=== PATIENT | female | born 1955 | race Caucasian/White ===

== ENCOUNTER → 2017-05-11 | Outpatient (CLI) | payer OTHER ==
[2015-03-13 08:30] VITALS: BP 135/83
[~2017-05-11] MED LIST: CLON1TAB PO; DESV50TA PO; LEVO25TA55 PO; LEVO75TA PO; LEVO88TA2 PO; LITH150C PO; LORA-434 PO; OXYC10TA45 PO; OXYC5CAP PO; RIVA10TA PO; SOLI5TAB2 PO; TOPOMAX
[2017-05-11 10:15] LABS: BASO % 0 % (0-3); EOS # 0.1 x10^3/uL (0.0-0.7); EOS % 1 % (0-3); HEMATOCRIT 41.3 % (36.0-47.0); HEMOGLOBIN 13.1 g/dL (12.0-15.5); LYMPH # 1.7 x10^3/uL (1.0-4.8); LYMPH % 20 % (24-48); MEAN CORPUSCULAR HEMOGLOBIN 30 pg (25-35); MEAN CORPUSCULAR HGB CONC 32 g/dL (31-37); MEAN CORPUSCULAR VOLUME 93 fL (79-100); MONO # 0.6 x10^3/uL (0.0-1.1); MONO % 7 % (0-9); NEUT # 6.1 x10^3uL (1.8-7.7); NEUT % 71 % (31-73); PLATELET COUNT 303 x10^3/uL (140-400); RED BLOOD COUNT 4.45 x10^6/uL (3.50-5.40); RED CELL DISTRIBUTION WIDTH 14.1 % (11.5-14.5); WHITE BLOOD COUNT 8.5 x10^3/uL (4.0-11.0)
[2017-05-11 11:20] LABS: SEDIMENTATION RATE 29 (0-25)
== END | disposition home or self-care (01) ==
LOC: LAB 09:33
PROVIDERS: ATTEND Anesthesiology Pain Medicine
DX: Z48.89 Encounter for other specified surgical aftercare (principal)
CPT/HCPCS: 36415; 85025; 85651; 86140

== ENCOUNTER → 2017-09-03 | Outpatient (CLI) | payer OTHER ==
[2015-03-13 08:30] VITALS: BP 135/83
== END | disposition home or self-care (01) ==
LOC: SURG 11:57
PROVIDERS: ATTEND Anesthesiology Pain Medicine
DX: M54.5 Low back pain (principal); K21.9 Gastro-esophageal reflux disease without esophagitis; I10 Essential (primary) hypertension; M19.90 Unspecified osteoarthritis, unspecified site; E78.5 Hyperlipidemia, unspecified
CPT/HCPCS: 99214

== ENCOUNTER 2018-04-08 12:30 | Emergency (ER) | payer OTHER ==
[~2018-04-08] VITALS: Ht 149.9 cm; Wt 81.6 kg
[~2018-04-08 12:30] MED LIST changes: +LORA-254 PO; -LORA-434 PO
[2018-04-08 12:47] VITALS: BP 164/68
[2018-04-08] MEDS ORDERED: KETOROLAC 60 MG/2 ML VIAL. IM ONE (13:15)
--- NOTE | 2018-04-08 13:48 | RAD ---
PQRS Compliance Statement: One or more of the following individualized dose reduction techniques were utilized for this examination: 1. Automated exposure control 2. Adjustment of the mA and/or kV according to patient size 3. Use of iterative reconstruction technique CT LUMBAR SPINE WO CONTRAST, CT ABDOMEN PELVIS WO CONTRAST Clinical Indication: LEFT FLANK PAIN AND BACK PAIN SINCE WEDNESDAY, incontinence SINCE WEDNESDAY Comparison: CT lumbar spine without contrast, January 16, 2016. CT abdomen and pelvis without contrast, March 13, 2015. Technique: Helical CT imaging of the abdomen and pelvis is performed without IV or oral contrast. Using source images, small [id number], axial, coronal, sagittal reconstructions of the lumbar spine are performed. Findings: Evaluation of solid organs and bowel is limited without oral and IV contrast, decreasing sensitivity for detection of pathology. Minimal atelectasis or scarring in the lateral left lower lobe. Cardiac size normal. The liver, gallbladder, spleen, pancreas, adrenal glands, abdominal aorta caliber are normal. There is infrarenal IVC filter. There is a small cyst in the lower pole the right kidney. There is no hydronephrosis. There is gastric lap band, position appears appropriate. There is right sided pack of dorsal column stimulator. There is left sided pack of stimulator in the pelvis. There is no dilated small bowel. The appendix is normal. There is no colon wall thickening. There is moderate to large colon stool volume, similar to prior study. The proximal colon is distended. There is no point of transition. The urinary bladder is normal. Uterus surgically absent. No pelvic free fluid. There is mild left convexity lumbar scoliosis. There is left-sided fusion of T11-L1. There is T12 corpectomy with bone graft placement. Hardware appears stable. Compression fractures at the superior endplates of T10 and L4. Mild grade 1 anterolisthesis of L4 and L5 is stable. Beam hardening artifact at the level of the hardware limits evaluation of the central canal. L2/L3: There is a broad-based posterior disc osteophyte complex. No significant central canal stenosis. Mild left and no significant right right neural foraminal narrowing. L3/L4: There is minimal broad-based posterior disc bulge. Prominent posterior epidural fat. Central canal is adequate. Moderate left and mild right neural foraminal narrowing. L4/L5: Anterolisthesis at this level. Central canal is patent. There is facet hypertrophy, worse on the left. Neural foraminal narrowing is probably mild bilaterally. L5/S1: Central canal and neural foramina are patent. IMPRESSION: 1. No acute abdominal or pelvic abnormality. 2. Moderate to large colon stool volume, correlate for constipation. 3. Left-sided fusion at T11-L1, T12 corpectomy and bone graft placement appear stable. 4. Old compression fractures at the superior endplates of T10 and L4. Electronically signed by: Brant Franco MD (04/08/2018 1:45 PM) [id number]
[2018-04-08 14:11] LABS: BACTERIA,URINE 0 /HPF (0-FEW); BILIRUBIN,URINE NEG (NEG); CLARITY,URINE CLEAR; GLUCOSE,URINE NEG (NEG); NITRITE,URINE NEG (NEG); RBC,URINE 0 /HPF (0-2); SQUAMOUS EPITHELIAL CELL,UR OCC /LPF; UROBILINOGEN,URINE 0.2 mg/dL (0.2 mg/dL)
[2018-04-08 14:12] LABS: COLOR,URINE YELLOW
[2018-04-08] MEDS ORDERED: MAGN296S9 PO (14:21)
[2018-04-08] MEDS ORDERED: CYCL-331 PO (14:21)
[2018-04-08] MEDS ORDERED: CIPR250T30 PO (14:21)
--- NOTE | 2018-04-08 14:21 | PHYS DOC ---
Past History Past Medical History: Hypothyroid, Pancreatitis, Other Past Surgical History: Hysterectomy Smoking: Non-smoker Alcohol Use: None Drug Use: None Adult General Chief Complaint Chief Complaint: BACK PAIN OR INJURY HPI HPI 62-year-old female patient with history of chronic back pain and surgery complaining of increasing of left flank and pain with radiation to the upper quadrant for the last 5 days that getting better with Percocet. Patient denies new focal neuro deficit, fever and chills, urinary symptoms, nausea and vomiting. Patient complaining of chronic constipation. Review of Systems Review of Systems Constitutional: Denies fever or chills [] Eyes: Denies change in visual acuity, redness, or eye pain [] HENT: Denies nasal congestion or sore throat [] Respiratory: Denies cough or shortness of breath [] Cardiovascular: No additional information not addressed in HPI [] GI: Denies abdominal pain, nausea, vomiting, bloody stools or diarrhea [] : Denies dysuria or hematuria [] Musculoskeletal: Reports back pain Integument: Denies rash or skin lesions [] Neurologic: Denies headache, focal weakness or sensory changes [] Endocrine: Denies polyuria or polydipsia [] All other systems were reviewed and found to be within normal limits, except as documented in this note. Current Medications Current Medications Current Medications Medications (Trade) Dose Ordered Sig/Naida Start Time Stop Time Status Last Admin Dose Admin Ketorolac Tromethamine (Toradol Im) 60 mg 1X ONCE 04/08/18 13:15 04/08/18 13:17 DC 04/08/18 13:38 60 MG Allergies Allergies Allergies Coded Allergies Type Severity Reaction Last Updated Verified Iodinated Contrast- Oral and IV Dye Allergy Intermediate 03/13/15 No Penicillins Allergy Intermediate 03/13/15 Yes amitriptyline Allergy Unknown 04/08/18 Yes Physical Exam Physical Exam Constitutional: Well developed, well nourished, moderate distress, non-toxic appearance. [] HENT: Normocephalic, atraumatic Eyes: PERRLA, EOMI, conjunctiva normal, no discharge. [] Neck: Normal range of motion, no tenderness, supple, no stridor. [] Cardiovascular:Heart rate regular rhythm, no murmur [] Lungs & Thorax: Bilateral breath sounds clear to auscultation [] Abdomen: Bowel sounds normal, soft, no tenderness, no masses, no pulsatile masses. [] Skin: Warm, dry, no erythema, no rash. [] Back: No midline tenderness, no CVA tenderness, limited range of motion of lumbar spine because of pain Extremities: No tenderness, no cyanosis, no clubbing, ROM intact, no edema. [] Neurologic: Alert and oriented X 3, normal motor function, normal sensory function, no focal deficits noted. [] Psychologic: Affect normal, judgement normal, mood normal. [] Current Patient Data Vital Signs Vital Signs Date Time Temp Pulse Resp B/P (MAP) Pulse Ox O2 Delivery O2 Flow Rate FiO2 04/08/18 12:47 98.6 88 18 97 Room Air Lab Results Laboratory Tests Test 04/08/18 13:47 Urine Collection Type Unknown Urine Color Yellow Urine Clarity Clear Urine pH 7.0 Urine Specific [place] 1.010 Urine Protein Neg (NEG-TRACE) Urine Glucose (UA) Neg mg/dL (NEG) Urine Ketones (Stick) Neg mg/dL (NEG) Urine Blood Trace (NEG) Urine Nitrite Neg (NEG) Urine Bilirubin Neg (NEG) Urine Urobilinogen Dipstick 0.2 mg/dL (0.2 mg/dL) Urine Leukocyte Esterase Trace (NEG) Urine RBC 0 /HPF (0-2) Urine WBC 1-4 /HPF (0-4) Urine Squamous Epithelial Cells Occ /LPF Urine Bacteria 0 /HPF (0-FEW) Urine Mucus Slight /LPF EKG EKG [] Radiology/Procedures Radiology/Procedures [][address] [address] IMAGING REPORT Signed PATIENT: KARINA CALLOWAY ACCOUNT: [id number] : 1955 LOCATION: ER AGE: 62 SEX: F EXAM STATUS: REG ER ORD. PHYSICIAN: CHUN COHEN MD REASON: back pain and flank pain PROCEDURE: CT ABDOMEN PELVIS WO CONTRAST PQRS Compliance Statement: One or more of the following individualized dose reduction techniques were utilized for this examination: 1. Automated exposure control 2. Adjustment of the mA and/or kV according to patient size 3. Use of iterative reconstruction technique CT LUMBAR SPINE WO CONTRAST, CT ABDOMEN PELVIS WO CONTRAST Clinical Indication: LEFT FLANK PAIN AND BACK PAIN SINCE WEDNESDAY, incontinence SINCE WEDNESDAY Comparison: CT lumbar spine without contrast, January 16, 2016. CT abdomen and pelvis without contrast, March 13, 2015. Technique: Helical CT imaging of the abdomen and pelvis is performed without IV or oral contrast. Using source images, small [id number], axial, coronal, sagittal reconstructions of the lumbar spine are performed. Findings: Evaluation of solid organs and bowel is limited without oral and IV contrast, decreasing sensitivity for detection of pathology. Minimal atelectasis or scarring in the lateral left lower lobe. Cardiac size normal. The liver, gallbladder, spleen, pancreas, adrenal glands, abdominal aorta caliber are normal. There is infrarenal IVC filter. There is a small cyst in the lower pole the right kidney. There is no hydronephrosis. There is gastric lap band, position appears appropriate. There is right sided pack of dorsal column stimulator. There is left sided pack of stimulator in the pelvis. There is no dilated small bowel. The appendix is normal. There is no colon wall thickening. There is moderate to large colon stool volume, similar to prior study. The proximal colon is distended. There is no point of transition. The urinary bladder is normal. Uterus surgically absent. No pelvic free fluid. There is mild left convexity lumbar scoliosis. There is left-sided fusion of T11-L1. There is T12 corpectomy with bone graft placement. Hardware appears stable. Compression fractures at the superior endplates of T10 and L4. Mild grade 1 anterolisthesis of L4 and L5 is stable. Beam hardening artifact at the level of the hardware limits evaluation of the central canal. L2/L3: There is a broad-based posterior disc osteophyte complex. No significant central canal stenosis. Mild left and no significant right right neural foraminal narrowing. L3/L4: There is minimal broad-based posterior disc bulge. Prominent posterior epidural fat. Central canal is adequate. Moderate left and mild right neural foraminal narrowing. L4/L5: Anterolisthesis at this level. Central canal is patent. There is facet hypertrophy, worse on the left. Neural foraminal narrowing is probably mild bilaterally. L5/S1: Central canal and neural foramina are patent. IMPRESSION: 1. No acute abdominal or pelvic abnormality. 2. Moderate to large colon stool volume, correlate for constipation. 3. Left-sided fusion at T11-L1, T12 corpectomy and bone graft placement appear stable. 4. Old compression fractures at the superior endplates of T10 and L4. Electronically signed by: Brant Franco MD (04/08/2018 1:45 PM) [id number] DICTATED AND SIGNED BY: BRANT FRANCO MD DATE: 04/08/18 1332 CC: HAYLEY CHAUHAN; CHUN COHEN MD ~ Course & Med Decision Making Course & Med Decision Making Pertinent Labs and Imaging studies reviewed. (See chart for details) []discharge: I've spoken with the patient and/or caregivers. I've explained the patient's condition, diagnosis and treatment plan based on information available to me at this time. I've answered the patient's and/or caregivers questions and addressed any concerns. The patient and/or caregivers have a good understanding the patient's diagnosis, condition and treatment plan as can be expected at this point. Vital signs have been stabilized. The patient's condition is stable for discharge from the emergency department. The patient will pursue further outpatient evaluation with her primary care provider or other designated consulting physician as outlined in the discharge instructions. Patient and/or caregivers are agreeable to this plan of care and follow-up instructions have been explained in detail. The patient and/or caregivers have received these instructions in written format and expressed understanding of these discharge instructions. The patient and her caregivers are aware that if any significant change in condition or worsening of symptoms should prompt him to immediately return to this of the closest emergency department. If an emergent department is not readily available I would encourage him to call 911. [place] Disclaimer Dragon Disclaimer This electronic medical record was generated, in whole or in part, using a voice recognition dictation system. Departure Departure: Impression: Primary Impression: Exacerbation of chronic back pain Additional Impressions: UTI (urinary tract infection) Constipation Disposition: 01 HOME, SELF-CARE (at 1416) Condition: IMPROVED Referrals: HAYLEY CHAUHAN (PCP) Patient Instructions: Constipation, Adult, Lumbosacral Strain, Urinary Tract Infection Additional Instructions: Drink plenty of liquids Follow-up with your primary care physician in 3-5 days Return to ER if not getting better Apply ice on your back Scripts Ciprofloxacin Hcl (CIPRO) 250 Mg Tablet 1 TAB PO BID, #6 TAB Prov: CHUN COHEN MD 04/08/18 Cyclobenzaprine Hcl (CYCLOBENZAPRINE HCL) 10 Mg Tablet 1 TAB PO TID, #30 TAB Prov: CHUN COHEN MD 04/08/18 Magnesium Citrate (MAGNESIUM CITRATE) 296 Ml Solution 296 ML PO ONCE, #296 ML Prov: CHUN COHEN MD 04/08/18 Problem Qualifiers CHUN COHEN MD Apr 08, 2018 14:21
== END 2018-04-08 14:22 ==
LOC: ER 12:30
DX: G89.29 Other chronic pain (principal); N39.0 Urinary tract infection, site not specified; K59.00 Constipation, unspecified; E03.9 Hypothyroidism, unspecified; Z88.0 Allergy status to penicillin; Z91.041 Radiographic dye allergy status; Z88.8 Allergy status to other drugs, medicaments and biological substances
CPT/HCPCS: 72131; 74176; 81001; 87086; 96372; 99285; J1885; 82947

== ENCOUNTER 2018-04-15 17:00 | Emergency (ER) | payer MEDICARE, OTHER ==
[~2018-04-15] VITALS: Ht 149.9 cm; Wt 81.6 kg
[~2018-04-15 17:00] MED LIST changes: +CIPR250T30 PO; +CYCL-331 PO; +MAGN296S9 PO
[2018-04-15] MEDS ORDERED: MORPHINE SULFATE 5 MG/ML SYRINGE. IV ONE (17:30)
--- NOTE | 2018-04-15 17:45 | ED.ADGEN ---
Past History Past Medical History: Hypothyroid, Pancreatitis, Other (EVE DENNY DO) Past Medical History: Hypothyroid, Pancreatitis (BONNIE GARCIA DO) Past Surgical History: Hysterectomy (EVE DENNY DO) Past Surgical History: Hysterectomy (BONNIE GARCIA DO) Smoking: Non-smoker Alcohol Use: None Drug Use: None (EVE DENNY DO) Smoking: Non-smoker Alcohol Use: None Drug Use: None (BONNIE GARICA DO) Adult General HPI HPI Patient is a 62 year old female who presents with left side abdominal pain. Patient has been having pain symptoms over the last 2 weeks. She describes a constant pain that is over the left middle and lower portion of her abdomen. She normally uses Percocet every day for control of back pain and her abdominal pain has also been relieved by this treatment, but does return. She does not have nausea or vomiting. She denies urinary symptoms. She has not had a fever. She was evaluated in this emergency department last week for the same complaint. At that time, her CT scan was suspicious for constipation. She was discharged home with magnesium citrate which she has been using. She now describes having diarrhea stools secondary to her anti-constipation treatment. But her pain has continued. The patient is allergic to iodine contrast dye. She does have anaphylactoid type reaction so this is not an option for imaging. (EVE DENNY DO) Review of Systems Review of Systems Constitutional: Denies fever or chills Eyes: Denies change in visual acuity HENT: Denies nasal congestion or sore throat Respiratory: Denies cough or shortness of breath Cardiovascular: No additional information not addressed in HPI GI: as described above : Denies dysuria Musculoskeletal: Denies back pain or joint pain Integument: Denies rash or skin lesions Neurologic: Denies headache Endocrine: Denies polyuria All other systems were reviewed and found to be within normal limits, except as documented in this note. (EVE DENNY DO) Current Medications Current Medications Current Medications Medications (Trade) Dose Ordered Sig/Naida Start Time Stop Time Status Last Admin Dose Admin Ceftriaxone Sodium 1 gm/ Sodium Chloride 50 ml @ 100 mls/hr 1X ONCE 04/15/18 20:30 04/15/18 20:30 DC Ceftriaxone Sodium (Rocephin) 1 gm 1X ONCE 04/15/18 20:30 04/15/18 20:31 DC 04/15/18 20:30 1 GM Morphine Sulfate (Morphine 10mg Syringe) 10 mg 1X ONCE 04/15/18 18:00 04/15/18 18:01 DC 04/15/18 17:53 10 MG Morphine Sulfate (Morphine 5mg Syringe) 5 mg 1X ONCE 04/15/18 17:30 04/15/18 17:47 DC (BONNIE GARCIA DO) Allergies Allergies Allergies Coded Allergies Type Severity Reaction Last Updated Verified Iodinated Contrast- Oral and IV Dye Allergy Intermediate 03/13/15 No Penicillins Allergy Intermediate 03/13/15 Yes amitriptyline Allergy Unknown 04/08/18 Yes (BONNIE GARCIA DO) Physical Exam Physical Exam Constitutional: Well developed, well nourished, no acute distress, non-toxic appearance HENT: Normocephalic, atraumatic, bilateral external ears normal, oropharynx moist, no oral exudates, nose normal Eyes: PERRLA, EOMI, conjunctiva normal Neck: Normal range of motion, no tenderness Cardiovascular:Heart rate regular rhythm, no murmur Lungs & Thorax: Bilateral breath sounds clear to auscultation Abdomen: Bowel sounds normal, soft, mildly TTP over the left upper and lower quadrants. No guarding or rebound Skin: Warm, dry, no erythema Extremities: no edema Neurologic: Alert and oriented X 3 Psychologic: Affect normal (EVE DENNY DO) Physical Exam PE: Constitutional- No acute distress, No ENT- EOMI, conjunctiva clear Chest- Heart rate normal, CR < 2 sec Respiratory- Lung CTAB, No respiratory distress GI- Soft, Mild diffuse tenderness noted, Mild distention noted. Ext- Neurovascularly intact, No deformity, Trace edema BLE. Neuro- Alert and Oriented x 3, No focal deficits. (BONNIE GARCIA DO) Current Patient Data Vital Signs Vital Signs Date Time Temp Pulse Resp B/P (MAP) Pulse Ox O2 Delivery O2 Flow Rate FiO2 04/15/18 21:12 88 18 126/72 (90) 99 Room Air 04/15/18 17:16 98.3 (BONNIE GARCIA DO) Lab Results Laboratory Tests Test 04/15/18 18:55 04/15/18 18:59 White Blood Count 9.5 x10^3/uL (4.0-11.0) Red Blood Count 4.37 x10^6/uL (3.50-5.40) Hemoglobin 13.6 g/dL (12.0-15.5) Hematocrit 40.8 % (36.0-47.0) Mean Corpuscular Volume 93 fL (79-100) Mean Corpuscular Hemoglobin 31 pg (25-35) Mean Corpuscular Hemoglobin Concent 33 g/dL (31-37) Red Cell Distribution Width 13.4 % (11.5-14.5) Platelet Count 336 x10^3/uL (140-400) Neutrophils (%) (Auto) 60 % (31-73) Lymphocytes (%) (Auto) 29 % (24-48) Monocytes (%) (Auto) 9 % (0-9) Eosinophils (%) (Auto) 1 % (0-3) Basophils (%) (Auto) 1 % (0-3) Neutrophils # (Auto) 5.7 x10^3uL (1.8-7.7) Lymphocytes # (Auto) 2.8 x10^3/uL (1.0-4.8) Monocytes # (Auto) 0.8 x10^3/uL (0.0-1.1) Eosinophils # (Auto) 0.1 x10^3/uL (0.0-0.7) Basophils # (Auto) 0.1 x10^3/uL (0.0-0.2) Sodium Level 141 mmol/L (136-145) Potassium Level 3.9 mmol/L (3.5-5.1) Chloride Level 105 mmol/L (98-107) Carbon Dioxide Level 24 mmol/L (21-32) Anion Gap 12 (6-14) Blood Urea Nitrogen 15 mg/dL (7-20) Creatinine 0.8 mg/dL (0.6-1.0) Estimated GFR (Cockcroft-Gault) 72.2 Glucose Level 120 mg/dL (70-99) H Calcium Level 9.3 mg/dL (8.5-10.1) Total Bilirubin 0.2 mg/dL (0.2-1.0) Direct Bilirubin 0.1 mg/dL (0.0-0.2) Aspartate Amino Transferase (AST) 23 U/L (15-37) Alanine Aminotransferase (ALT) 35 U/L (14-59) Alkaline Phosphatase 101 U/L (46-116) Total Protein 7.6 g/dL (6.4-8.2) Albumin 3.4 g/dL (3.4-5.0) Lipase 193 U/L (73-393) Urine Collection Type Unknown Urine Color Yellow Urine Clarity Hazy Urine pH 8.0 Urine Specific [place] 1.015 Urine Protein Neg (NEG-TRACE) Urine Glucose (UA) Neg mg/dL (NEG) Urine Ketones (Stick) Neg mg/dL (NEG) Urine Blood Trace (NEG) Urine Nitrite Neg (NEG) Urine Bilirubin Neg (NEG) Urine Urobilinogen Dipstick 0.2 mg/dL (0.2 mg/dL) Urine Leukocyte Esterase Trace (NEG) Urine RBC 3-5 /HPF (0-2) Urine WBC 5-10 /HPF (0-4) Urine Squamous Epithelial Cells Few /LPF Urine Transitional Epithelial Cells Occ /LPF Urine Bacteria Few /HPF (0-FEW) (BONNIE GARCIA DO) EKG EKG [] (EVE DENNY DO) Radiology/Procedures Radiology/Procedures [] (EVE DENNY DO) Radiology/Procedures PROCEDURE: CT ABD PEL W/ORAL CONTRST ONLY PQRS Compliance Statement: One or more of the following individualized dose reduction techniques were utilized for this examination: 1. Automated exposure control 2. Adjustment of the mA and/or kV according to patient size 3. Use of iterative reconstruction technique CT abdomen/pelvis without contrast 04/15/2018 7:12 PM INDICATION: Abdominal pain with left flank pain. History of contrast allergy. History of spine fracture with hardware. Pain stimulator and bladder stimulator. COMPARISON: CT abdomen/pelvis April 08, 2018 TECHNIQUE: Multiple axial CT images of the abdomen and pelvis were obtained without intravenous contrast. Coronal and sagittal reformats are provided. FINDINGS: There is minimal subsegmental atelectasis at the left lung base. Heart size is within normal limits. Evaluation of the solid abdominal viscera is limited by lack of intravenous contrast. The liver, spleen, bilateral adrenal glands and gallbladder are normal in appearance. There is mild prominence of the main pancreatic duct which measures up to 3 mm and is visualized throughout the pancreas. There is mild parenchymal atrophy. The duct in the head of the pancreas may measure up to 5 mm. Common bile duct is normal in caliber. Abdominal aorta is normal in course and caliber. There are no pathologically enlarged lymph nodes in abdomen or pelvis. IVC filter is present. There is no free fluid or free intraperitoneal air. The kidneys are relatively symmetric in appearance. There is no suspicious renal mass within the limitations of a noncontrast examination. There is no hydronephrosis. There are no calculi within the kidneys, ureters or urinary bladder. Gastric bypass surgery is noted with a lap band at the level of the gastroesophageal junction. Oral contrast was administered. Opacified bowel loops since her normal mucosal fold pattern. No evidence for bowel obstruction or inflammation. Appendix is normal in appearance. Large volume fecal contents are noted throughout the colon with mild distention of the rectum measuring up to 7.1 x 7.1 cm with stool. Urinary bladder is within normal limits given degree of distention. Left gluteal battery pack is identified with a lead extending into the right presacral space. A right gluteal battery pack is identified with leads extending into the posterior epidural space. There is thoracolumbar fusion hardware from T11 through L1. No evidence for hardware failure. Chronic appearing compression deformities are noted at T12 and L4. No suspicious abnormalities identified involving the left flank. There is a small left inguinal hernia. IMPRESSION: 1. Large volume fecal matter is noted throughout the colon with mild rectal distention. Correlate with history of constipation. 2. No evidence for obstructive uropathy. No suspicious abnormalities identified in the left flank. 3. Chronic appearing compression deformities at T12 and L4 with thoracolumbar fusion. 4. Postoperative changes from lap band surgery are identified without evidence for associated complications. 5. IVC filter is present. 6. Prominence of the main pancreatic duct is nonspecific. Main pancreatic duct measures up to 5 mm at the head of the pancreas. Correlation with nonemergent MRCP may be of benefit. Electronically signed by: Carrie Boyd MD (04/15/2018 8:20 PM) [facility] (BONNIE GARCIA DO) Course & Med Decision Making Course & Med Decision Making Pertinent Labs and Imaging studies reviewed. (See chart for details) Patient is seen and examined immediately on arrival to the room. She is complaining of abdominal pain primarily. She states this pain feels different from her chronic back pain. She was seen earlier and treated for constipation but states that she is no longer constipated and is continuing to have pain. She already underwent CT scan of the abdomen pelvis without contrast last week which did not reveal an acute cause for her symptoms. Today, standard abdominal pain workup is ordered. Will give oral contrast for the study today. This plan of care is discussed with the patient and she is agreeable. Some difficulty attaining IV access. Blood tubes collected. Patient will drink PO contrast. Will give IM pain control. 18:00 Transfer of care to Dr. Garcia. Labs and CT scan pending. (EVE DENNY DO) Course & Med Decision Making Signout received from Dr. Denny for patient with abdominal pain. History of recent evaluation with concern for constipation as etiology. Patient reports no significant improvement despite being on laxatives. Labs and CT imaging pending at time of sign out. Patient seen and evaluated by myself. Labs reviewed and posted to chart. UA does appear concerning for possible infection. Empiric antibiotics initiated. CT abdomen/pelvis with findings consistent for constipation. A nonspecific pancreatic ductal prominence appreciated with recommendation for further evaluation. CT report provided to patient with instructions to follow closely with her PCP/GI regarding.Patient stable for discharge with outpatient follow-up with PCP/GI. Discussed findings and plan with patient and family, who acknowledge understanding and agreement. (BONNIE GARCIA DO) Final Impression Final Impression Abdominal pain (EVE DENNY DO) Final Impression Abdominal pain, Acute UTI, Constipation (BONNIE GARCIA DO) Dragon Disclaimer Dragon Disclaimer This electronic medical record was generated, in whole or in part, using a voice recognition dictation system. (EVE DENNY DO) EVE DENNY DO Apr 15, 2018 17:45 BONNIE GARCIA DO Apr 15, 2018 20:06
[2018-04-15] MEDS ORDERED: MORPHINE SULFATE 10 MG/ML SYRINGE. IM ONE (18:00)
[2018-04-15 19:17] LABS: BASO # 0.1 x10^3/uL (0.0-0.2); BASO % 1 % (0-3); EOS # 0.1 x10^3/uL (0.0-0.7); EOS % 1 % (0-3); HEMATOCRIT 40.8 % (36.0-47.0); HEMOGLOBIN 13.6 g/dL (12.0-15.5); LYMPH # 2.8 x10^3/uL (1.0-4.8); LYMPH % 29 % (24-48); MEAN CORPUSCULAR HEMOGLOBIN 31 pg (25-35); MEAN CORPUSCULAR HGB CONC 33 g/dL (31-37); MEAN CORPUSCULAR VOLUME 93 fL (79-100); MONO # 0.8 x10^3/uL (0.0-1.1); MONO % 9 % (0-9); NEUT # 5.7 x10^3uL (1.8-7.7); NEUT % 60 % (31-73); PLATELET COUNT 336 x10^3/uL (140-400); RED BLOOD COUNT 4.37 x10^6/uL (3.50-5.40); RED CELL DISTRIBUTION WIDTH 13.4 % (11.5-14.5); WHITE BLOOD COUNT 9.5 x10^3/uL (4.0-11.0)
[2018-04-15 19:32] LABS: ALBUMIN 3.4 g/dL (3.4-5.0); CALCIUM 9.3 mg/dL (8.5-10.1); CREATININE 0.8 mg/dL (0.6-1.0); DIRECT BILIRUBIN 0.1 mg/dL (0.0-0.2); GFR 72.2; POTASSIUM 3.9 mmol/L (3.5-5.1); TOTAL BILIRUBIN 0.2 mg/dL (0.2-1.0); TOTAL PROTEIN 7.6 g/dL (6.4-8.2)
[2018-04-15 20:00] LABS: BACTERIA,URINE FEW /HPF (0-FEW); BILIRUBIN,URINE NEG (NEG); CLARITY,URINE HAZY; COLOR,URINE YELLOW; GLUCOSE,URINE NEG (NEG); NITRITE,URINE NEG (NEG); SQUAMOUS EPITHELIAL CELL,UR FEW /LPF; UROBILINOGEN,URINE 0.2 mg/dL (0.2 mg/dL)
--- NOTE | 2018-04-15 20:24 | RAD ---
PQRS Compliance Statement: One or more of the following individualized dose reduction techniques were utilized for this examination: 1. Automated exposure control 2. Adjustment of the mA and/or kV according to patient size 3. Use of iterative reconstruction technique CT abdomen/pelvis without contrast 04/15/2018 7:12 PM INDICATION: Abdominal pain with left flank pain. History of contrast allergy. History of spine fracture with hardware. Pain stimulator and bladder stimulator. COMPARISON: CT abdomen/pelvis April 08, 2018 TECHNIQUE: Multiple axial CT images of the abdomen and pelvis were obtained without intravenous contrast. Coronal and sagittal reformats are provided. FINDINGS: There is minimal subsegmental atelectasis at the left lung base. Heart size is within normal limits. Evaluation of the solid abdominal viscera is limited by lack of intravenous contrast. The liver, spleen, bilateral adrenal glands and gallbladder are normal in appearance. There is mild prominence of the main pancreatic duct which measures up to 3 mm and is visualized throughout the pancreas. There is mild parenchymal atrophy. The duct in the head of the pancreas may measure up to 5 mm. Common bile duct is normal in caliber. Abdominal aorta is normal in course and caliber. There are no pathologically enlarged lymph nodes in abdomen or pelvis. IVC filter is present. There is no free fluid or free intraperitoneal air. The kidneys are relatively symmetric in appearance. There is no suspicious renal mass within the limitations of a noncontrast examination. There is no hydronephrosis. There are no calculi within the kidneys, ureters or urinary bladder. Gastric bypass surgery is noted with a lap band at the level of the gastroesophageal junction. Oral contrast was administered. Opacified bowel loops since her normal mucosal fold pattern. No evidence for bowel obstruction or inflammation. Appendix is normal in appearance. Large volume fecal contents are noted throughout the colon with mild distention of the rectum measuring up to 7.1 x 7.1 cm with stool. Urinary bladder is within normal limits given degree of distention. Left gluteal battery pack is identified with a lead extending into the right presacral space. A right gluteal battery pack is identified with leads extending into the posterior epidural space. There is thoracolumbar fusion hardware from T11 through L1. No evidence for hardware failure. Chronic appearing compression deformities are noted at T12 and L4. No suspicious abnormalities identified involving the left flank. There is a small left inguinal hernia. IMPRESSION: 1. Large volume fecal matter is noted throughout the colon with mild rectal distention. Correlate with history of constipation. 2. No evidence for obstructive uropathy. No suspicious abnormalities identified in the left flank. 3. Chronic appearing compression deformities at T12 and L4 with thoracolumbar fusion. 4. Postoperative changes from lap band surgery are identified without evidence for associated complications. 5. IVC filter is present. 6. Prominence of the main pancreatic duct is nonspecific. Main pancreatic duct measures up to 5 mm at the head of the pancreas. Correlation with nonemergent MRCP may be of benefit. Electronically signed by: Carrie Boyd MD (04/15/2018 8:20 PM) [facility]
[2018-04-15] MEDS ORDERED: cefTRIAXone IV Push 1 GM VIAL. IVP ONE (20:30)
[2018-04-15] MEDS ORDERED: PEG4000S8 PO (20:57)
[2018-04-15] MEDS ORDERED: CEPH-264 PO (20:57)
[2018-04-15] MEDS ORDERED: SENN-121 PO (20:57)
[2018-04-15 21:12] VITALS: BP 126/72
== END 2018-04-15 21:15 | disposition home or self-care (01) ==
LOC: ER 17:00
DX: N39.0 Urinary tract infection, site not specified (principal); K59.00 Constipation, unspecified; G89.29 Other chronic pain; E03.9 Hypothyroidism, unspecified; Z90.710 Acquired absence of both cervix and uterus; Z91.041 Radiographic dye allergy status; Z88.0 Allergy status to penicillin; Z88.8 Allergy status to other drugs, medicaments and biological substances
CPT/HCPCS: 36415; 74176; 80048; 80076; 81001; 83690; 85025; 96372; 96374; 99285; J0696; J2270

== ENCOUNTER → 2018-06-02 | Outpatient (CLI) | payer MEDICARE, OTHER ==
[~2018-06-02] MED LIST changes: +CEPH-264 PO; +PEG4000S8 PO; +SENN-121 PO
--- NOTE | 2018-06-02 14:40 | RAD ---
CT of the abdomen and pelvis without contrast, 06/02/2018: HISTORY: Back and abdominal pain Noncontrast scans were obtained as requested. The unopacified liver is unremarkable. No gallbladder abnormality is seen. The pancreas is unremarkable. The spleen is of normal size. Artifacts arising from thoracic spine implants degrade image quality in the upper abdomen. The unopacified kidneys show no abnormality. An inferior vena cava filter is in place in an infrarenal location. There is minimal aortic calcific plaquing. No abdominal or pelvic adenopathy is seen. The uterus is surgically absent. A couple of small scattered colonic diverticula are seen. No paracolonic inflammatory process is evident. The appendix is visualized and shows no abnormality. The bowel loops are not dilated. A lap band type device is in place related to the proximal stomach. No free air or significant free fluid is evident in the abdomen or pelvis. There are radiopaque electronic device is in the subcutaneous fat of the upper gluteal regions bilaterally attached 2 electrodes which extend into the thoracic spinal canal as well as into the right presacral region. There is a mild L4 vertebral compression fracture, unchanged since 04/08/2018. There has apparently been fusion of the T11-L1 vertebral bodies with surgical implants related to those vertebral bodies. These include a surgical plate along the left lateral aspect of those vertebrae attached at L1 and T11 via 2 screws at each level. There is also a longitudinally oriented radiopaque implant at the level of the T12 vertebral body. Associated artifacts degrade image quality through this region. No obvious spinal stenosis is seen. IMPRESSION: 1. No acute abdominal or pelvic abnormality is detected. 2. A lap band device is in place. 3. Extensive surgical spinal implants from T11 through L1. 4. Electronic stimulator devices in place extending into the thoracic spinal canal and into the right presacral region. 5. Old L4 vertebral compression fracture. PQRS Compliance Statement: One or more of the following individualized dose reduction techniques were utilized for this examination: 1. Automated exposure control 2. Adjustment of the mA and/or kV according to patient size 3. Use of iterative reconstruction technique Electronically signed by: Elder Beebe MD (06/02/2018 2:36 PM) [facility]
--- NOTE | 2018-06-02 14:52 | RAD ---
CT of the thoracic spine without contrast, 06/02/2018: HISTORY: Back pain Noncontrast scans were obtained and compared to a study from 01/16/2016. There are surgical plates along the left lateral aspects of the T11 and L1 vertebral bodies attached to those vertebral bodies via 2 screws at each level. There are left-sided longitudinally oriented rods attached to the T11 and L1 plates and screws. There is a radiopaque implant present at the elbow level of the T12 vertebral body. Similar findings were present on the 01/16/2016 exam. Associated artifacts degrade image quality at this level. No central spinal stenosis or paraspinous mass is evident. There is mild loss of height anteriorly of the T10 vertebral body. A degenerative type cyst along its superior endplate is unchanged. There is a new moderate sized lucent defect along its inferior endplate when compared to the 01/16/2016 exam. This is compatible with a large Schmorl's node or degenerative type cyst. The sequelae of a interval infectious process is less likely. The mid and upper thoracic vertebral heights are well-maintained. There are degenerative changes involving scattered facet joints. There is no evidence of significant central spinal stenosis. Spinal stimulator leads extend into the posterior aspect of the spinal canal up to the T5-6 level. IMPRESSION: 1. Stable postsurgical findings with instrumentation from T11 through L1. 2. Mild chronic T10 vertebral compression fracture with a new lucent defect along its inferior endplate, likely on a degenerative basis. 3. Spinal stimulator leads extend up to the T5-6 level. 4. No evidence of significant central spinal stenosis. PQRS Compliance Statement: One or more of the following individualized dose reduction techniques were utilized for this examination: 1. Automated exposure control 2. Adjustment of the mA and/or kV according to patient size 3. Use of iterative reconstruction technique Electronically signed by: Elder Beebe MD (06/02/2018 2:49 PM) [facility]
== END | disposition home or self-care (01) ==
LOC: RAD 11:18
PROVIDERS: ATTEND Anesthesiology Pain Medicine
DX: M48.56XD Collapsed vertebra, not elsewhere classified, lumbar region, subsequent encounter for fracture with routine healing (principal); M48.54XD Collapsed vertebra, not elsewhere classified, thoracic region, subsequent encounter for fracture with routine healing; K57.30 Diverticulosis of large intestine without perforation or abscess without bleeding; I10 Essential (primary) hypertension; E78.5 Hyperlipidemia, unspecified; E03.9 Hypothyroidism, unspecified; K21.9 Gastro-esophageal reflux disease without esophagitis; Z90.710 Acquired absence of both cervix and uterus; Z86.718 Personal history of other venous thrombosis and embolism; Z88.0 Allergy status to penicillin; Z88.8 Allergy status to other drugs, medicaments and biological substances
CPT/HCPCS: 72128; 74176

== ENCOUNTER → 2018-06-22 | Day surgery (SDC) | payer MEDICARE, OTHER ==
[~2018-06-22] MED LIST changes: +ALBUTEROL SULFATE 2.5 MG/3 ML NEBU. NEB PRN; +ATOR10TA PO; +ATROPINE 0.5 MG/5 ML DISP.SYRIN. IV PRN; +BACITRACIN 50,000 UNIT VIAL. ONE; +CARI6CAP PO; +CHOL10003 PO; +CLINDAMYCIN 600MG PREMIX 50 ML IV ONE; +CLON0.5T PO; +CRAN200C2 PO; +IV RINGERS SOLUTION,LACTATED 1,000 ML IV SCH; +LABETALOL 100 MG/20 ML VIAL. IV PRN; +LEVO100T PO; +LIDOCAINE 1% PF 30 ML VIAL. ONE; +LIDOCAINE 2% PF Vial for OR 5 ML VIAL. ONE; +MIDAZOLAM HCL PF 2 MG/2 ML VIAL. ONE; +MIRA50TA PO; +MORPHINE SULFATE 2 MG/ML DISP.SYRIN. IV PRN; +NALO25TA PO; +NALOXONE 0.4 MG/ML VIAL. IV PRN; +ONDANSETRON PF 4 MG/2 ML VIAL. IV PRN; +OXYC-327 PO; +PRAZ1CAP2 PO; +PROCHLORPERAZINE 10 MG/2 ML VIAL. IV PRN; +PROPOFOL 40 ML IV ONE; +TOPI50TA38 PO; +VALA10005 PO; +VENL75CA PO; +hydrALAZINE 20 MG/ML VIAL. IV PRN; +oxyCODONE/APAP 5/325 1 TAB TABLET PO PRN
[2018-06-22 08:39] LABS: BASO % 0 % (0-3); EOS # 0.1 x10^3/uL (0.0-0.7); EOS % 1 % (0-3); HEMATOCRIT 42.7 % (36.0-47.0); HEMOGLOBIN 13.8 g/dL (12.0-15.5); LYMPH # 1.7 x10^3/uL (1.0-4.8); LYMPH % 28 % (24-48); MEAN CORPUSCULAR HEMOGLOBIN 31 pg (25-35); MEAN CORPUSCULAR HGB CONC 32 g/dL (31-37); MEAN CORPUSCULAR VOLUME 96 fL (79-100); MONO # 0.5 x10^3/uL (0.0-1.1); MONO % 8 % (0-9); NEUT # 3.8 x10^3uL (1.8-7.7); NEUT % 62 % (31-73); PLATELET COUNT 253 x10^3/uL (140-400); RED BLOOD COUNT 4.45 x10^6/uL (3.50-5.40); RED CELL DISTRIBUTION WIDTH 14.9 % (11.5-14.5); WHITE BLOOD COUNT 6.1 x10^3/uL (4.0-11.0)
[2018-06-22 10:46] VITALS: BP 125/70
== END | disposition home or self-care (01) ==
LOC: SURG 07:11
PROVIDERS: ATTEND Anesthesiology Pain Medicine
DX: Z45.42 Encounter for adjustment and management of neurostimulator (principal); G89.18 Other acute postprocedural pain; R01.1 Cardiac murmur, unspecified; E03.9 Hypothyroidism, unspecified; K21.9 Gastro-esophageal reflux disease without esophagitis; M19.90 Unspecified osteoarthritis, unspecified site; B00.9 Herpesviral infection, unspecified; M54.5 Low back pain; F31.9 Bipolar disorder, unspecified; E78.5 Hyperlipidemia, unspecified; F41.9 Anxiety disorder, unspecified; Z79.899 Other long term (current) drug therapy; Z88.0 Allergy status to penicillin; Z91.041 Radiographic dye allergy status; Z98.890 Other specified postprocedural states
CPT/HCPCS: 36415; 63688; 85025; 86703; 86706; 87340; J2001; J2250; J2704; J3010; J3490; J7120

== ENCOUNTER → 2018-09-01 | Outpatient (CLI) | payer MEDICARE, OTHER ==
[2018-06-22 10:46] VITALS: BP 125/70
[~2018-09-01] MED LIST changes: -ALBUTEROL SULFATE 2.5 MG/3 ML NEBU. NEB PRN; -ATROPINE 0.5 MG/5 ML DISP.SYRIN. IV PRN; -BACITRACIN 50,000 UNIT VIAL. ONE; +BUPIVACAINE MPF 0.25% 10 ML VIAL. ONE; -CLINDAMYCIN 600MG PREMIX 50 ML IV ONE; -IV RINGERS SOLUTION,LACTATED 1,000 ML IV SCH; -LABETALOL 100 MG/20 ML VIAL. IV PRN; -LIDOCAINE 2% PF Vial for OR 5 ML VIAL. ONE; -MIDAZOLAM HCL PF 2 MG/2 ML VIAL. ONE; -MORPHINE SULFATE 2 MG/ML DISP.SYRIN. IV PRN; -NALOXONE 0.4 MG/ML VIAL. IV PRN; -ONDANSETRON PF 4 MG/2 ML VIAL. IV PRN; -OXYC-327 PO; -OXYC10TA45 PO; +OXYC10TA46 PO; +OXYC1TAB19 PO; -PROCHLORPERAZINE 10 MG/2 ML VIAL. IV PRN; -PROPOFOL 40 ML IV ONE; -hydrALAZINE 20 MG/ML VIAL. IV PRN; -oxyCODONE/APAP 5/325 1 TAB TABLET PO PRN
== END | disposition home or self-care (01) ==
LOC: SURG 11:22
PROVIDERS: ATTEND Anesthesiology Pain Medicine
DX: M79.18 Myalgia, other site (principal); R01.1 Cardiac murmur, unspecified; M19.90 Unspecified osteoarthritis, unspecified site; K21.9 Gastro-esophageal reflux disease without esophagitis; M54.9 Dorsalgia, unspecified; E07.9 Disorder of thyroid, unspecified; F41.9 Anxiety disorder, unspecified; F32.9 Major depressive disorder, single episode, unspecified; Z88.0 Allergy status to penicillin; Z91.041 Radiographic dye allergy status; Z88.8 Allergy status to other drugs, medicaments and biological substances
CPT/HCPCS: 20552; J2001; J3490; 64492

== ENCOUNTER → 2018-11-03 | Outpatient (CLI) | payer MEDICARE, OTHER ==
[2018-06-22 10:46] VITALS: BP 125/70
== END | disposition home or self-care (01) ==
LOC: SURG 12:20
PROVIDERS: ATTEND Anesthesiology Pain Medicine
DX: M79.18 Myalgia, other site (principal); K21.9 Gastro-esophageal reflux disease without esophagitis; M19.90 Unspecified osteoarthritis, unspecified site; I10 Essential (primary) hypertension; E78.5 Hyperlipidemia, unspecified; F31.9 Bipolar disorder, unspecified; F41.9 Anxiety disorder, unspecified; Z88.0 Allergy status to penicillin; Z91.041 Radiographic dye allergy status; Z88.8 Allergy status to other drugs, medicaments and biological substances; Z98.890 Other specified postprocedural states; Z79.899 Other long term (current) drug therapy; M51.37 Other intervertebral disc degeneration, lumbosacral region; G89.4 Chronic pain syndrome
CPT/HCPCS: 20552; J2001; J3490

== ENCOUNTER → 2019-02-15 | Outpatient (CLI) | payer MEDICARE, OTHER ==
[2018-06-22 10:46] VITALS: BP 125/70
[~2019-02-15] MED LIST changes: -BUPIVACAINE MPF 0.25% 10 ML VIAL. ONE; +BUPIVACAINE MPF 0.5% 30 ML VIAL. ONE; -LIDOCAINE 1% PF 30 ML VIAL. ONE
== END | disposition home or self-care (01) ==
LOC: SURG 09:24
PROVIDERS: ATTEND Anesthesiology Pain Medicine
DX: M79.18 Myalgia, other site (principal); M54.5 Low back pain; K31.9 Disease of stomach and duodenum, unspecified; F41.9 Anxiety disorder, unspecified; F32.9 Major depressive disorder, single episode, unspecified; Z79.899 Other long term (current) drug therapy; Z98.890 Other specified postprocedural states; Z87.39 Personal history of other diseases of the musculoskeletal system and connective tissue; Z88.0 Allergy status to penicillin; Z88.8 Allergy status to other drugs, medicaments and biological substances
CPT/HCPCS: 20553; J3490; 20552

== ENCOUNTER → 2019-10-06 | Outpatient (CLI) | payer MEDICARE, OTHER ==
[~2019-10-06] MED LIST changes: +BUPIVACAINE MPF 0.25% 10 ML VIAL. ONE; -BUPIVACAINE MPF 0.5% 30 ML VIAL. ONE; +LIDOCAINE 1% PF 30 ML VIAL. ONE; +MAGN296S68 PO; -MAGN296S9 PO
[2019-10-06 11:31] VITALS: BP 121/77
== END | disposition home or self-care (01) ==
LOC: SURG 10:33
PROVIDERS: ATTEND Anesthesiology Pain Medicine
DX: M79.10 Myalgia, unspecified site (principal); G89.4 Chronic pain syndrome; K21.9 Gastro-esophageal reflux disease without esophagitis; M19.90 Unspecified osteoarthritis, unspecified site; I10 Essential (primary) hypertension; E78.5 Hyperlipidemia, unspecified; Z98.890 Other specified postprocedural states; Z79.899 Other long term (current) drug therapy; Z91.041 Radiographic dye allergy status; Z88.0 Allergy status to penicillin; Z88.8 Allergy status to other drugs, medicaments and biological substances
CPT/HCPCS: 20552; J2001; J3490

== ENCOUNTER → 2020-06-05 | Outpatient (CLI) | payer MEDICARE, OTHER ==
[~2020-06-05] MED LIST changes: -BUPIVACAINE MPF 0.25% 10 ML VIAL. ONE; +BUPIVACAINE MPF 0.25% 30 ML VIAL. ONE
[2020-06-05 15:52] VITALS: BP 115/72
== END | disposition home or self-care (01) ==
LOC: SURG 14:13
PROVIDERS: ATTEND Anesthesiology
DX: M79.18 Myalgia, other site (principal); G89.4 Chronic pain syndrome; I10 Essential (primary) hypertension; E78.5 Hyperlipidemia, unspecified; M19.90 Unspecified osteoarthritis, unspecified site; F31.9 Bipolar disorder, unspecified; K21.9 Gastro-esophageal reflux disease without esophagitis; Z88.0 Allergy status to penicillin; Z87.81 Personal history of (healed) traumatic fracture; Z87.828 Personal history of other (healed) physical injury and trauma; Z79.899 Other long term (current) drug therapy; Z98.890 Other specified postprocedural states; Z88.8 Allergy status to other drugs, medicaments and biological substances; Z91.041 Radiographic dye allergy status
CPT/HCPCS: 20553; J2001; J3490

== ENCOUNTER → 2020-08-12 | Outpatient (CLI) | payer MEDICARE, OTHER ==
[2020-06-05 15:52] VITALS: BP 115/72
[~2020-08-12] MED LIST changes: -BUPIVACAINE MPF 0.25% 30 ML VIAL. ONE; -LIDOCAINE 1% PF 30 ML VIAL. ONE; -NALO25TA PO; +NALO25TA4 PO
--- NOTE | 2020-08-12 14:51 | EKG ---
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
[2020-08-12 14:56] LABS: CALCIUM 9.3 mg/dL (8.5-10.1); CREATININE 0.7 mg/dL (0.6-1.0); GFR 83.5; POTASSIUM 3.9 mmol/L (3.5-5.1)
[2020-08-12 15:09] LABS: BASO % 0 % (0-3); EOS # 0.1 x10^3/uL (0.0-0.7); EOS % 2 % (0-3); HEMATOCRIT 42.4 % (36.0-47.0); HEMOGLOBIN 13.5 g/dL (12.0-15.5); LYMPH # 1.6 x10^3/uL (1.0-4.8); LYMPH % 26 % (24-48); MEAN CORPUSCULAR HEMOGLOBIN 31 pg (25-35); MEAN CORPUSCULAR HGB CONC 32 g/dL (31-37); MEAN CORPUSCULAR VOLUME 96 fL (79-100); MONO # 0.5 x10^3/uL (0.0-1.1); MONO % 8 % (0-9); NEUT % 65 % (31-73); PLATELET COUNT 269 x10^3/uL (140-400); RED CELL DISTRIBUTION WIDTH 14.1 % (11.5-14.5); WHITE BLOOD COUNT 6.2 x10^3/uL (4.0-11.0)
[2020-08-12 20:07] LABS: BILIRUBIN,URINE NEG (NEG); CLARITY,URINE CLEAR; COLOR,URINE YELLOW; GLUCOSE,URINE NEG (NEG); NITRITE,URINE NEG (NEG); RBC,URINE RARE /HPF (0-2)
[2020-08-12 20:08] LABS: BACTERIA,URINE MOD /HPF (0-FEW); SQUAMOUS EPITHELIAL CELL,UR FEW /LPF; YEAST,URINE PRESENT /HPF
== END ==
LOC: LAB 13:14
PROVIDERS: ATTEND Anesthesiology Pain Medicine
DX: Z01.818 Encounter for other preprocedural examination (principal); Z13.9 Encounter for screening, unspecified
CPT/HCPCS: 36415; 80048; 81001; 85025; 85610; 87086; 87641; 93005

== ENCOUNTER → 2020-08-13 | Outpatient (CLI) | payer MEDICARE, OTHER ==
[2020-06-05 15:52] VITALS: BP 115/72
== END ==
LOC: LAB 13:00
PROVIDERS: ATTEND Anesthesiology Pain Medicine
DX: Z01.812 Encounter for preprocedural laboratory examination (principal); Z20.828 Contact with and (suspected) exposure to other viral communicable diseases
CPT/HCPCS: U0003

== ENCOUNTER → 2020-10-17 | Outpatient (CLI) | payer MEDICARE, OTHER ==
[2020-06-05 15:52] VITALS: BP 115/72
--- NOTE | 2020-10-17 14:48 | RAD ---
DATE: 10/17/2020 2:00 PM EXAM: DIGITAL DIAGNOSTIC BILATERAL HISTORY: 65-year-old woman due for screening presents with nonfocal left breast pain COMPARISON: 08/16/2018 bilateral mammogram Bilateral full field craniocaudal and mediolateral oblique images were obtained using digital technique. This study was interpreted with the benefit of Computerized Aided Detection (CAD). FINDINGS: Breast Density: FATTY The Breast Parenchyma is primarily fatty replaced. Breast parenchyma level density A. No suspicious masses, microcalcifications or architectural distortion is present to suggest malignancy in either breast. The visualized axillae are unremarkable. IMPRESSION: No mammographic evidence of malignancy. BI-RADS CATEGORY: 1 NEGATIVE RECOMMENDED FOLLOW-UP: 12M 12 MONTH FOLLOW-UP Annual screening mammography is recommended, unless clinically indicated sooner based on symptoms or change in physical exam. Also recommend clinical management of nonfocal left breast pain. PQRS compliance statement: Patient information was entered into a reminder system with a target due date for the next mammogram. Mammography is a sensitive method for finding small breast cancers, but it does not detect them all and is not a substitute for careful clinical examination. A negative mammogram does not negate a clinically suspicious finding and should not result in delay in biopsying a clinically suspicious abnormality. "Our facility is accredited by the [employer] Mammography Program."
== END ==
LOC: MAMMO 13:47
PROVIDERS: ATTEND Family Medicine
DX: N64.4 Mastodynia (principal)
CPT/HCPCS: 77066

== ENCOUNTER → 2021-10-17 | Outpatient (CLI) | payer MEDICARE, OTHER ==
[2020-06-05 15:52] VITALS: BP 115/72
[~2021-10-17] MED LIST changes: -CYCL-331 PO; +CYCL10TA19 PO; +MIRA25TA PO; -MIRA50TA PO
[2021-10-17 14:14] LABS: CLARITY,URINE HAZY
[2021-10-17 14:15] LABS: BACTERIA,URINE MOD /HPF (0-FEW); COLOR,URINE ORANGE; SQUAMOUS EPITHELIAL CELL,UR FEW /LPF; WBC,URINE >40 /HPF (0-4)
== END ==
LOC: LAB 13:00
DX: N39.41 Urge incontinence (principal); Z87.440 Personal history of urinary (tract) infections
CPT/HCPCS: 81001; 87086

== ENCOUNTER → 2021-10-20 | Outpatient (CLI) | payer MEDICARE, OTHER ==
[2020-06-05 15:52] VITALS: BP 115/72
--- NOTE | 2021-10-20 16:03 | RAD ---
Digital Mammogram Bilateral History: Routine screening Technique: 2-D digital CC and MLO views were obtained. CAD - computer aided detection was utilize d. Comparison: Mammograms from 10/17/2020 and 08/16/2018. Findings: Breast Tissue Density B : There are scattered areas of fibroglandular density There are no suspicious masses, malignant appearing calcifications, or areas of architectural distort ion. Impression: No evidence of malignancy. Assessment: BI-RADS Category 1: Negative. Recommendation: Routine screening mammograms. The patient will receive a letter with the results in the mail. Patient information will be entered i nto the mammography reminder system with a target recall date for the next mammogram. A reminder rebel er will be generated. Electronically signed by: Sveta Forrest MD (10/20/2021 4:01 PM) [id number]
== END ==
LOC: MAMMO 13:50
PROVIDERS: ATTEND Family Medicine
DX: Z12.31 Encounter for screening mammogram for malignant neoplasm of breast (principal)
CPT/HCPCS: 77067